=== PATIENT | female | born 1975 | race Asian ===

== ENCOUNTER 2018-09-08 08:24 | Emergency (ER) | payer OTHER ==
[~2018-09-08] VITALS: Ht 157.5 cm; Wt 77.1 kg
[2018-09-08 08:27] VITALS: BP_SYST 136
[2018-09-08 09:00] VITALS: BP_SYST 139
== END 2018-09-08 09:00 | disposition home or self-care (01) ==
LOC: SED 08:24
DX: F41.9 Anxiety disorder, unspecified (principal); I10 Essential (primary) hypertension
CPT/HCPCS: 99283